=== PATIENT | female | born 1965 | race Caucasian/White ===

== ENCOUNTER 2018-12-18 23:14 | Emergency (ER) | payer BC ==
[~2018-12-18] VITALS: Ht 157.5 cm; Wt 95.3 kg
[2018-12-18] MEDS ORDERED: OXYMETAZOLINE HCL 0.05% NAS 1 SPRAY BTL ONE (23:45)
== END 2018-12-19 00:55 | disposition home or self-care (01) ==
LOC: ER 23:14
DX: R04.0 Epistaxis (principal)
CPT/HCPCS: 99282

== ENCOUNTER 2019-04-11 02:21 | Emergency (ER) | payer BC ==
[~2019-04-11] VITALS: Ht 157.5 cm; Wt 95.3 kg
--- OUTSIDE RECORDS SUMMARY | 2019-04-11 02:23 | XMS REPORT | Summary of Care ---
Author Author [facility] - Health Organization [facility] - Health Address Unknown Phone Unavailable Care Team Providers Care Jewelry Technician Name Role Phone Cristian Su MD PCP Encounter Details Care Team Description [place] [id number] [address] [place] [address] 04/01/2019 Letter (Out) [facility]- [address] [address], [address] [place] [address] Allergies Comments Active Allergy Reactions Severity Noted Date Diphenhydramine Hcl Shortness of High 08/11/2018 Breath Codeine Shortness of High 02/14/2018 Breath Phenytoin Sodium Extended Shortness of High 02/14/2018 Breath Morphine Shortness of High 02/14/2018 Breath Penicillins Shortness of High 02/14/2018 Breath Topiramate Shortness of High 02/14/2018 Breath documented as of this encounter (statuses as of 04/01/2019) Medications End Date Status Medication Sig Dispensed Refills Start Date Active nitroglycerin 0.[address] 1 30 tablet 6 sublingual tablet under 9 tabletIndications: Angina the tongue of effort every 5 (five) minutes as needed. Active lisinopril 20 mg Take 1 tablet 90 tablet 4 tabletIndications: by mouth 9 Essential hypertension, daily. benign Active amLODIPine 5 mg Take 1 tablet 90 tablet 4 tabletIndications: by mouth 9 Essential hypertension, daily. benign Active levETIRAcetam (KEPPRA) Take 1 tablet 180 tablet 4 500 mg tabletIndications: by mouth 2 9 Generalized tonic-clonic (two) times seizure daily. Active PHENobarbital 15 mg Take 1 tablet 30 tablet 2 tabletIndications: by mouth 9 Generalized tonic-clonic daily. seizure Active PHENobarbital 97.2 mg Take 2 60 tablet 2 tabletIndications: tablets by 9 Generalized tonic-clonic mouth daily. seizure documented as of this encounter (statuses as of 04/01/2019) Active Problems No known active problemsdocumented as of this encounter (statuses as of 04/01/2019) Immunizations Name Administration Dates Next Due TDAP (ADACEL) VACCINE 02/16/2019 documented as of this encounter Social History Date Tobacco Use Types Packs/Day Years Used Never Smoker Smokeless Tobacco: Never Used Drinks/Week oz/Week Comments Alcohol Use No Sex Assigned at Date Recorded Not on file Industry Job Start Date Occupation Not on file Not on file Not on file Travel End Travel History Travel Start No recent travel history available. documented as of this encounter Last Filed Vital Signs Not on filedocumented in this encounter Plan of Treatment Health Maintenance Due Date Last Done Comments Breast Cancer Screening 04/09/2019 Postponed from 2006 (MAMMOGRAM) (Alternative Guidelines) PAP SMEAR 04/09/2019 Postponed from 09/30/1987 (Alternative Guidelines) Zoster Recombinant 09/04/2019 Postponed from 2016 Vaccine (SHINGRIX) (1 of (Alternative Guidelines) 2) INFLUENZA VACCINE (#1) 2020 Postponed from 10/19/2018 (Refused) COLONOSCOPY 10/10/2022 10/10/2012 DTaP,Tdap,and Td Vaccines 02/16/2029 02/16/2019 (2 - Td) PNEUMOCOCCAL 0-64 YEARS Aged Out No longer eligible based COMBINED SERIES on patient's age to complete this topic documented as of this encounter Results Not on filedocumented in this encounter Insurance Type Payer Benefit Subscriber ID Effective Phone Address Plan / Dates Group PPO/POS [employer] [place] [employer] [place] [id number] 2015-P [phone] [address] [place] - resent [id number] [place] [id number] documented as of this encounter
--- OUTSIDE RECORDS SUMMARY | 2019-04-11 02:23 | XMS REPORT ---
Author Author [facility] Address Unknown Phone Unavailable Care Team Providers Care Crew Member Name Role Phone Unavailable Unavailable Problems This patient has no known problems. Allergies, Adverse Reactions, Alerts This patient has no known allergies or adverse reactions. Medications This patient has no known medications.
[2019-04-11 02:50] VITALS: BP 137/88
== END 2019-04-11 02:51 | disposition home or self-care (01) ==
LOC: ER 02:21
DX: L73.9 Follicular disorder, unspecified (principal)
CPT/HCPCS: 99282